=== PATIENT | male | born 1980 | race Caucasian/White ===

== ENCOUNTER 2020-04-18 11:14 | Emergency (ER) | payer MEDICAID, SELFPAY ==
[2020-04-18] VITALS (22 sets, daily range): BP systolic 138–189; BP diastolic 82–116; PULSE 85–123; RESP 11–23; TEMP 36.1–37; O2SAT 96–99
--- NOTE | 2020-04-18 11:15 | RT.EKG_ITS ---
APPROVED REPORT Exam: Resting ECG Patient Location: E HR:105 bpm ECG Measurements Heart Rate 105 AXIS KS 163 P 42 QRSd 90 QRS 136 QT 333 T 28 QTc 440 <Conclusion> Sinus tachycardia...rate> 99. No acute ST/T wave findings.
--- NOTE | 2020-04-18 11:35 | W.ED.GENAD ---
Discharge Plan Disposition Patient Disposition: HOME Condition: Stable Discharge Details Chief Complaint: GenMedical Clinical Impression: Chronic chest pain, Chronic leg pain Primary Care Provider: Unknown,Unknown ED Provider: Hien Hernandez Home Meds and New Rx's Prescriptions: Continued lisinopril 20 mg Tablet 20 mg PO DAILY RF: 0 amlodipine 10 mg Tablet 10 mg PO DAILY RF: 0 Discharge Instructions Instructions: Chronic Pain (ED), Leg Pain (ED) Additional Instructions: Alternate tylenol and motrin as needed and directed for pain. Continue to take your lisinopril during the day and try taking your amlodipine at night. You will receive a call from care management regarding a follow-up appointment with a primary care doctor for continued management of your blood pressure and for recheck of your glucose. Return immediately to the emergency department if you develop any worsening or new concerning symptoms. Discharge Data Discharge Physician: Hien Hernandez Medical Decision Making 1130 -- 39-year-old male with a history of hypertension presents for bilateral leg pain, and pleuritic chest pain for the past few months, worse over the past few days. BP on arrival 169/93. He appears sweaty and anxious but nontoxic. He states he began to feel sweaty after nurse minnie blood and placed IV. He admits to feeling slightly anxious while being in the ER. States his main concern was possible DVT or PE. EKG notes a rate of 105, sinus with no acute ST ischemic changes. Consider DVT/PE. History and presentation may be more consistent with anxiety, muscle strain. Will place an IV, bolus IV fluids, screening labs, bilateral Doppler ultrasounds and CT chest and give a dose of Ativan and reassess. 1400 -- Labs and imaging reviewed. Glucose 281. AST 80. ALT 99. Patient states he has had elevated liver enzymes in the past. CT chest and lower extremity ultrasounds negative for acute findings. CT chest did note findings consistent with possible previous infection versus granulomatous disease. Patient denies any known history of TB in the past but states he has had previous lung infections or pneumonia. Patient declined a dose of Ativan here. BP 138/82. He denies any complaints of chest or leg pain at this time. Patient is requesting to go home. Patient placed on care management list to arrange for a follow-up appointment with a new primary care doctor in the area to establish care, continue to monitor his blood pressure and recheck his glucose and check A1C, and recheck of his liver enzymes. Patient had expressed concern about amlodipine or lisinopril causing fatigue. Advised that patient can consider taking his BP meds at night. He is advised to watch sugar and carb intake. Usual and customary return precautions given prior to discharge. Medical Records Medical records reviewed: Yes I reviewed the patient's medical records. Imaging Data Radiologic Study: Radiologist's impression: US EXTREMITY VENOUS BI CLINICAL HISTORY: b/l leg pain, r/o dvt. TECHNIQUE: Ultrasound performed using standard protocol. COMPARISON: No exams were available for comparison FINDINGS: Duplex venous ultrasound was performed according to the usual protocol. The deep veins are freely compressible throughout and there is normal flow augmentation with manual calf compression. 2D and Doppler evaluation are unremarkable. IMPRESSION: No evidence of deep venous thrombosis of the lower extremities. CT CHEST PE CTA CLINICAL HISTORY: pleuritic chest pain, r/o PE TECHNIQUE: COMPARISON: No exams were available for comparison FINDINGS: CT angiography of the chest was performed with intravenous infusion of 100 cc of Omnipaque 350. Images obtained through the upper abdomen show unremarkable appearance of visualized portions of liver spleen pancreas and kidneys. Right adrenal unremarkable. Left adrenal contains a 2 cm low-attenuation lesion consistent with adrenal adenoma. 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 There is no evidence of pulmonary embolic disease. Thoracic aorta and major branches are unremarkable with no dissection or aneurysm. No mediastinal or hilar adenopathy. Lungs are clear. No pleural effusion or pneumothorax. IMPRESSION: No evidence of pulmonary embolic disease. Lab Data Lab results reviewed: Yes I reviewed the patient's lab results. Labs: Laboratory Tests Range/Units 04/18/20 04/18/20 04/18/20 11:35 11:35 11:35 WBC (4.4-10.8) 10^3/uL 7.49 RBC (4.36-5.78) 10^6/uL 5.66 Hgb (13.5-17.5) g/dL 16.7 Hct (40.0-50.0) % 49.3 MCV (80-95) fL 87.1 MCH (27.0-33.0) pg 29.5 MCHC (32.0-36.0) % 33.9 RDW (11.8-14.1) % 12.7 Plt Count (130-400) 10^3/uL 259 MPV (8.0-11.0) fL 10.6 Immature Gran % 0.5 Neutrophils % 56.4 Lymphocytes % 33.2 Monocytes % 8.1 Eosinophils % 1.5 Basophils % 0.3 Absolute Neutrophils (1.2-6.7) 10^3/uL 4.22 Absolute Lymphocytes (1.2-3.4) 10^3/uL 2.49 Absolute Monocytes (0.1-0.8) 10^3/uL 0.61 Absolute Eosinophils (0.0-0.7) 10^3/uL 0.11 Absolute Basophils (0.0-0.2) 10^3/uL 0.02 PT (9.3-11.0) sec 10.2 INR (0.9-1.1) 1.0 APTT (21.0-31.4) sec 23.7 Sodium (136-145) mmol/L 136 Potassium (3.5-5.1) mmol/L 3.8 Chloride (98-107) mmol/L 99 Carbon Dioxide (21.0-32.0) mmol/L 27.6 Anion Gap (3-11) mmol/L 9.4 BUN (7-18) mg/dL 13 Creatinine (0.70-1.30) mg/dL 0.96 Estimated GFR/1.73 m2 (mL/min/1.73m2) >= 60.00 Glucose (74-106) mg/dL 281 H Calcium (8.5-10.1) mg/dL 8.7 Magnesium (1.8-2.4) mg/dL 2.2 Total Bilirubin (0.2-1.0) mg/dL 0.4 AST (15-37) U/L 80 H ALT (16-63) U/L 99 H Alkaline Phosphatase (46-116) U/L 68 Troponin I (<0.06) ng/mL < 0.05 Total Protein (6.4-8.2) g/dL 7.5 Albumin (3.4-5.0) g/dL 4.0 ECG Data Attestation: I personally reviewed and interpreted this ECG (s) as follows: Interpretation: Rate of 105, sinus, no acute ST elevation or depression. OR 163. QRS 90. QTc 440. HPI General Mode of arrival: ambulatory. Date/Time Provider Initiated Documentation: 04/18/20 11:16. Limitations to Documentation: no limitations. Information obtained by: patient. HPI Narrative: Pt is a 39yoM who presents to the ED w/ a c/o intermittent pleuritic chest pain and bilateral leg pain over the last few months, worse over the past 2 days. Patient states he has been on lisinopril for his high blood pressure for some time and started amlodipine for his high blood pressure a few months ago. Patient states he feels that after he takes amlodipine, he has pain with deep breath and fatigue. He also states he occasionally exercises and has been attributing intermittent scattered leg pain to both legs over the last few months, but states this was more noticeable last night. He states he feels pain within his proximal thighs alternating from left to right. He admits to occasional calf pain but none at present. He states he moved from [place] to [place] awhile ago and then moved from [place] to [place] a few months ago. He denies any recent travel, recent surgery or known sick contacts. He denies any fever, cough, shortness of breath, vomiting, diarrhea, dizziness, abdominal pain or urinary symptoms. Related Data Home Medications Medication Instructions Recorded Confirmed amlodipine 10 mg PO DAILY 04/18/20 04/18/20 lisinopril 20 mg PO DAILY 04/18/20 04/18/20 Allergies Allergy/AdvReac Type Severity Reaction Status Date / Time skin prep AdvReac Mild rash/irrita Uncoded 04/18/20 11:37 tion MMR AdvReac Unknown Uncoded 04/18/20 11:37 General Stated Complaint: GenMedical MURRAY: 2 Review of Systems All systems reviewed & are unremarkable except as noted in HPI and below Constitutional Constitutional: Reports as per HPI, Denies chills and Denies fever(s) Eyes Eyes: Denies blurry vision ENT Ears, Nose, Mouth, and Throat: Denies dizziness, Denies sore throat and Denies throat swelling Cardiovascular Cardiovascular: Reports chest pain and Reports dyspnea Respiratory Respiratory: Denies cough and Reports dyspnea Gastrointestinal Gastrointestinal: Denies abdominal pain, Denies diarrhea and Denies vomiting Genitourinary Genitourinary: Denies hematuria and Denies dysuria Musculoskeletal Musculoskeletal: Denies back pain, Denies numbness and Reports other (b/l leg pain) Integumentary/Breasts Skin/Breast: Denies lesions and Denies rash Neurologic Neurologic: Denies dizziness, Denies localized weakness and Denies numbness Allergic/Immunologic Allergic/Immunologic: Denies throat swelling [facility] Medical History (Updated 04/18/20 @ 14:48 by Hien Hernandez DO) HTN (hypertension) (Chronic) Surgical History (Updated 04/18/20 @ 12:14 by Hien Hernandez DO) No significant past surgical history (Acute) Social History Smoking/Tobacco Use Status: Never Alcohol Intake: current Alcohol Intake frequency: a few times a month Substance use type: does not use Do you feel safe at home: Yes Do you feel safe in your relationship?: Yes Exam Const General: cooperative and anxious Orientation: alert, awake and oriented x3 HENMT Head: normal to inspection Face and sinus: normal facial exam Eyes General: appearance normal, both eyes and all related structures Pupils: PERRL EOM: EOM intact bilaterally Neck Neck: normal visual inspection and No submandibular swelling Lymphatic: no lymphadenopathy noted Chest Chest: normal inspection of the chest and no tenderness Resp Effort & Inspection: normal respiratory effort and able to speak in complete sentences Auscultation: clear to auscultation bilaterally Cardio Rate: regular rate Rhythm: regular rhythm GI Inspection: normal to inspection Palpation: soft, not firm, not rigid and nontender Auscultation: normal bowel sounds Male General Exam: Yes normal external exam Back/Spine/Pelvis Thoracic/Lumbar Spine: thoracic and lumbar spine normal to inspection Pelvis: no pain with anterior-posterior compression Skin General skin exam: no rashes or lesions noted Neuro General: patient alert, patient awake and patient oriented x3 Cognition: normal cognition Speech: speech normal Motor: muscle tone normal throughout Sensory Exam: no sensory deficits noted Extrem General: normal to inspection, full ROM, capillary refill normal, no calf tenderness bilaterally and no edema Psych Appearance: grossly normal Mental Status: mental status grossly normal Speech and Movement: speech and movement normal Affect: normal affect Course Vital Signs Vital signs: Vital Signs Temperature 97.0 F L 04/18/20 11:21 Pulse 101 H 04/18/20 11:21 Respiratory Rate 18 04/18/20 11:21 Blood Pressure 169/93 H 04/18/20 11:21 Pulse Oximetry 99 04/18/20 11:21 Temperature 97.0 F L 04/18/20 11:21 Temperature Source Skin 04/18/20 11:21 Pulse 101 H 04/18/20 11:21 Respiratory Rate 12 04/18/20 11:27 Respiratory Effort 04/18/20 11:27 Respiratory Depth Shallow 04/18/20 11:27 Respiratory Pattern Normal 04/18/20 11:27 Blood Pressure 169/93 H 04/18/20 11:21 Pulse Oximetry 99 04/18/20 11:21 Oxygen Delivery Method Room Air 04/18/20 11:21 Oxygen Flow Rate 0 04/18/20 11:21 Pain Level 2 04/18/20 11:21
--- NOTE | 2020-04-18 12:00 | DI.CT_ITS ---
EXAM: CT CHEST PE CTA CLINICAL HISTORY: pleuritic chest pain, r/o PE TECHNIQUE: COMPARISON: No exams were available for comparison FINDINGS: CT angiography of the chest was performed with intravenous infusion of 100 cc of Omnipaque 350. Imag es obtained through the upper abdomen show unremarkable appearance of visualized portions of liver sp jeniffer pancreas and kidneys. Right adrenal unremarkable. Left adrenal contains a 2 cm low-attenuation lesion consistent with adrenal adenoma. 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 There is no evidence of pulmonary embolic dis ease. Thoracic aorta and major branches are unremarkable with no dissection or aneurysm. No mediast inal or hilar adenopathy. Lungs are clear. No pleural effusion or pneumothorax. IMPRESSION: No evidence of pulmonary embolic disease.
--- NOTE | 2020-04-18 12:00 | DI.US_ITS ---
EXAM: US EXTREMITY VENOUS BI CLINICAL HISTORY: b/l leg pain, r/o dvt. TECHNIQUE: Ultrasound performed using standard protocol. COMPARISON: No exams were available for comparison FINDINGS: Duplex venous ultrasound was performed according to the usual protocol. The deep veins are freely com pressible throughout and there is normal flow augmentation with manual calf compression. 2D and Doppl er evaluation are unremarkable. IMPRESSION: No evidence of deep venous thrombosis of the lower extremities DATA REPOSITORY:
[2020-04-18 12:48] LABS: Abs Immature Grans 0.04 10^3/uL (0.0-0.06); Absolute Basophil Count 0.02 10^3/uL (0.0-0.2); Absolute Eosinophil Count 0.11 10^3/uL (0.0-0.7); Absolute Lymphocyte Count 2.49 10^3/uL (1.2-3.4); Absolute Monocyte Count 0.61 10^3/uL (0.1-0.8); Absolute Neutrophil Count 4.22 10^3/uL (1.2-6.7); Basophils % 0.3; Eosinophils % 1.5; HCT 49.3 % (40.0-50.0); HGB 16.7 g/dL (13.5-17.5); Immature Grans % 0.5; Lymphocytes % 33.2; MCH 29.5 pg (27.0-33.0); MCHC 33.9 % (32.0-36.0); MCV 87.1 fL (80-95); MPV 10.6 fL (8.0-11.0); Monocytes % 8.1; Neutrophils % 56.4; Platelet Count 259 10^3/uL (130-400); RBC 5.66 10^6/uL (4.36-5.78); RDW 12.7 % (11.8-14.1); RDW-SD 40.4 fL; WBC 7.49 10^3/uL (4.4-10.8)
[2020-04-18] MEDS: Omnipaque 350 MG/ML 100 ML BTL IJ (13:04)
[2020-04-18] MEDS: Normal Saline - Diluent 50 ML VIAL IV (13:04)
[2020-04-18] MEDS: Normal Saline Flush 10 ML SYR IVP (13:05)
[2020-04-18 13:06] LABS: ALT 99 U/L (16-63); Alkaline Phosphatase 68 U/L (46-116); Anion Gap 9.4 mmol/L (3-11); BUN 13 mg/dL (7-18); Bilirubin, Total 0.4 mg/dL (0.2-1.0); CO2 27.6 mmol/L (21.0-32.0); CREATININE 0.96 mg/dL (0.70-1.30); Calcium 8.7 mg/dL (8.5-10.1); Chloride 99 mmol/L (98-107); Glucose 281 mg/dL (74-106); Magnesium 2.2 mg/dL (1.8-2.4); Potassium 3.8 mmol/L (3.5-5.1); Sodium 136 mmol/L (136-145); Total Protein 7.5 g/dL (6.4-8.2)
[2020-04-18 13:10] LABS: Troponin I < 0.05 ng/mL (<0.06)
[2020-04-18] MEDS: Normal Saline 1,000 ML 1000 ML IV (13:11)
[2020-04-18] MEDS: LORazepam 2 MG/ML VIAL 0.5 MG IVP (13:11)
[2020-04-18 13:12] LABS: PTT Activated 23.7 sec (21.0-31.4); Prothrombin Time 10.2 sec (9.3-11.0)
[2020-04-18 13:22] LABS: AST 80 U/L (15-37)
--- NOTE | 2020-04-18 15:01 | NUR.NOTE ---
Nursing Note: Referral for local PCP given to Care Management. Bridget Massey
--- NOTE | 2020-04-19 10:25 | CMPROGNOTE_ITS ---
- If Service Date Differs Date of service: 04/19/20 Time of Service: 10:25 Care Management Progress Note At the request of ED provider, OPAL coordinates a referral to Ginny Hardin, on-call doc, of [facility] to assist Darin in establishing care with a local PCP.
== END 2020-04-18 14:59 | disposition home or self-care (01) ==
PROVIDERS: Emergency Provider Physician Assistant
DX: R07.81 Pleurodynia (principal); M79.604 Pain in right leg; M79.605 Pain in left leg; G89.29 Other chronic pain; F41.9 Anxiety disorder, unspecified; I10 Essential (primary) hypertension
CPT/HCPCS: 36415; 71275; 80053; 93005; 96361; 96374; 99285; 83735; 84484; 85025; 85610; 85730; 93010; 93970; J2060; J3490

== ENCOUNTER 2020-05-10 03:02 | Outpatient (CLI) | payer MEDICAID, SELFPAY ==
[2020-05-10 11:41] LABS: Abs Immature Grans 0.03 10^3/uL (0.0-0.06); Absolute Basophil Count 0.02 10^3/uL (0.0-0.2); Absolute Eosinophil Count 0.01 10^3/uL (0.0-0.7); Absolute Lymphocyte Count 2.45 10^3/uL (1.2-3.4); Absolute Monocyte Count 0.61 10^3/uL (0.1-0.8); Absolute Neutrophil Count 7.38 10^3/uL (1.2-6.7); Basophils % 0.2; Eosinophils % 0.1; HCT 51.6 % (40.0-50.0); HGB 17.7 g/dL (13.5-17.5); Immature Grans % 0.3; Lymphocytes % 23.3; MCH 29.5 pg (27.0-33.0); MCHC 34.3 % (32.0-36.0); MCV 86.1 fL (80-95); Monocytes % 5.8; Neutrophils % 70.3; Nucleated RBC 0 %; Platelet Count 274 10^3/uL (130-400); RBC 5.99 10^6/uL (4.36-5.78); RDW 12.5 % (11.8-14.1); RDW-SD 39.2 fL
[2020-05-10 12:42] LABS: ALT 77 U/L (16-63); AST 27 U/L (15-37); Albumin 4.6 g/dL (3.4-5.0); Alkaline Phosphatase 74 U/L (46-116); Bilirubin, Total 0.5 mg/dL (0.2-1.0); Calculated LDL 146 mg/dL (<100); Cholesterol 227 mg/dL (<200); Ferritin 543 ng/mL (26-388); HDL Cholesterol 34 mg/dL (40-60); Total Protein 8.1 g/dL (6.4-8.2); Triglyceride 239 mg/dL (<150); Vitamin B12 1251 pg/mL (193-986)
[2020-05-10 12:44] LABS: Folate > 20.0 ng/mL (8.6-20.0)
[2020-05-10 13:04] LABS: Iron 103 ug/dL (65-175); Total Iron Binding Capacity 348 ug/dL (250-450); Transferrin Sat 30 % (20-55)
[2020-05-10 16:50] LABS: T3,Free 3.9 pg/mL (2.8-5.3)
[2020-05-11 09:07] LABS: DHEA Sulfate 200 ug/dL (140-484)
[2020-05-11 13:30] LABS: Lipoprotein (a) <6 mg/dL (<=30)
[2020-05-11 15:12] LABS: Homocysteine 9.8 umol/L (5.0-13.9)
[2020-05-12 04:49] LABS: Vitamin D 25 Total 18.1 ng/ml (30-100)
[2020-05-12 16:29] LABS: Testosterone, Free 4.34 ng/dL (4.65-18.1); Testosterone, Total 167 ng/dL (240-950)
[2020-05-16 17:01] LABS: MTHFR A1298C Mutation Analysis Negative (Negative); Methylenetetrahydrofol Reduc M Heterozygous (Negative)
== END 2020-05-10 03:22 ==
PROVIDERS: Visit Provider Naturopath
DX: F41.9 Anxiety disorder, unspecified (principal); I10 Essential (primary) hypertension; R73.9 Hyperglycemia, unspecified; R74.8 Abnormal levels of other serum enzymes; R53.83 Other fatigue; Z13.220 Encounter for screening for lipoid disorders
CPT/HCPCS: 36415; 80061; 80076; 81291; 82306; 82533; 82627; 83090; 83695; 84402; 84403; 82607; 82728; 82746; 83036; 83540; 83550; 83735; 84481; 85025

== ENCOUNTER 2020-07-05 00:43 | Outpatient (CLI) | payer MEDICAID, SELFPAY ==
--- NOTE | 2020-07-05 | DI.US_ITS ---
EXAM: US ABDOMEN CLINICAL HISTORY: HIGH SERUM FERRITIN,R77.8,? HETEROGENICITY OF LIVER TECHNIQUE: Ultrasound abdomen performed using standard protocol. COMPARISON: CT CT CHEST PE CTA from 04/18/2020 FINDINGS: LIVER: Diffusely increased echogenicity and decreased through transmission, consistent with moderate fatty infiltration. The overall liver echotexture is relatively homogeneous.. No focal liver lesion s are seen.. GALLBLADDER: No evidence of cholelithiasis. No evidence of wall thickening. No pericholecystic fluid identified. OQUENDO'S SIGN: Negative. BILIARY SYSTEM: No intrahepatic or extrahepatic biliary ductal dilation. KIDNEYS: Kidneys are symmetric in size. No evidence of renal calculi. No evidence of hydronephrosis. No renal mass or cyst identified. PANCREAS: Normal where visualized. SPLEEN: Within normal limits in size, measuring 12 cm in greatest dimension.. ABDOMINAL AORTA AND IVC: Visualized portions normal caliber. ASCITES: None seen. IMPRESSION: Moderate hepatic steatosis. No focal mass. DATA REPOSITORY:
== END 2020-07-05 01:03 ==
PROVIDERS: Visit Provider Naturopath
DX: K76.0 Fatty (change of) liver, not elsewhere classified (principal)
CPT/HCPCS: 76700

== ENCOUNTER 2020-11-29 11:14 | Outpatient (REF) | payer MEDICAID, SELFPAY ==
[2020-11-29 18:00] LABS: HCT 49.7 % (40.0-50.0); HGB 16.6 g/dL (13.5-17.5); MCHC 33.4 % (32.0-36.0); MCV 86.7 fL (80-95); MPV 10.6 fL (8.0-11.0); Platelet Count 227 10^3/uL (130-400); RBC 5.73 10^6/uL (4.36-5.78); RDW 12.6 % (11.8-14.1); RDW-SD 39.8 fL; WBC 6.36 10^3/uL (4.4-10.8)
[2020-11-29 18:15] LABS: Hemoglobin A1C 7.3 % (<5.7)
[2020-11-29 18:25] LABS: ALT 91 U/L (16-63); AST 44 U/L (15-37); Albumin 4.1 g/dL (3.4-5.0); Alkaline Phosphatase 83 U/L (46-116); Anion Gap 13.5 mmol/L (3-11); BUN 13 mg/dL (7-18); Bilirubin, Total 0.5 mg/dL (0.2-1.0); CO2 26.5 mmol/L (21.0-32.0); CREATININE 1.1 mg/dL (0.70-1.30); Calculated LDL 100 mg/dL (<100); Chloride 100 mmol/L (98-107); Cholesterol 187 mg/dL (<200); Glucose 151 mg/dL (74-106); HDL Cholesterol 28 mg/dL (40-60); Potassium 3.9 mmol/L (3.5-5.1); Sodium 140 mmol/L (136-145); Total Protein 7.4 g/dL (6.4-8.2); Triglyceride 296 mg/dL (<150)
== END 2020-11-29 11:15 | disposition home or self-care (01) ==
LOC: NCHCN 11:14
PROVIDERS: Visit Provider Physician Assistant
DX: R73.03 Prediabetes (principal); E78.5 Hyperlipidemia, unspecified; I10 Essential (primary) hypertension
CPT/HCPCS: 80053; 80061; 82533; 85027; 83036

== ENCOUNTER → 2021-12-11 01:32 | Outpatient (CLI) | payer MEDICAID, SELFPAY | PROVIDERS: Visit Provider Physician Assistant ==

== ENCOUNTER 2021-12-30 16:09 | Outpatient (REF) | payer MEDICAID, SELFPAY ==
[2022-01-03 19:28] LABS: Metanephrines, U 250 mcg/24 h; Normetanephrine, U 1056 mcg/24 h; Total Metanephrines, U 1306 mcg/24 h; Urine Volume 4800 mL
== END 2021-12-30 16:10 | disposition home or self-care (01) ==
LOC: NCHCN 16:09
PROVIDERS: Visit Provider Physician Assistant
DX: R00.0 Tachycardia, unspecified (principal)
CPT/HCPCS: 81050; 83835

== ENCOUNTER 2022-01-01 16:04 | Outpatient (REF) | payer MEDICAID, SELFPAY ==
[2022-01-01 19:54] LABS: Iron 159 ug/dL (65-175); Total Iron Binding Capacity 318 ug/dL (250-450); Transferrin Sat 50 % (20-55)
[2022-01-01 20:24] LABS: Ferritin 402 ng/mL (26-388)
[2022-01-01 20:40] LABS: FREE T4 0.85 ng/dL (0.76-1.46)
[2022-01-02 18:37] LABS: T3,Free 4.7 pg/mL (2.8-5.3)
== END 2022-01-01 16:05 | disposition home or self-care (01) ==
LOC: NCHCN 16:04
PROVIDERS: Visit Provider Physician Assistant
DX: E04.1 Nontoxic single thyroid nodule (principal)
CPT/HCPCS: 82728; 83540; 83550; 84439; 84443; 84481

== ENCOUNTER 2022-01-15 01:02 | Outpatient (CLI) | payer MEDICAID, SELFPAY ==
--- NOTE | 2022-01-15 | DI.CT_ITS ---
Exam(s) CT CHEST WO EXAM: CT CHEST WO CLINICAL HISTORY: LUNG NODULES R91.8, FU GRANULOMATOUS DISEASE 2019 CT. TECHNIQUE: Imaging protocol: Axial computed tomography images were obtained and coronal and sagittal reformatted images were created and reviewed. COMPARISON: CT CT CHEST PE CTA from 04/18/2020 FINDINGS: Tracheobronchial tree: Patent where visualized. Mediastinum and Cherie: Small calcified mediastinal and hilar lymph nodes. No dominant adenopathy or f luid collection. Pulmonary parenchyma: Scattered calcified pulmonary nodules consistent with healed granulomas. No co nsolidation or dominant measurable mass. Pleura: No effusion or pneumothorax. Heart: The heart is not dilated. No coronary artery calcifications are seen. Aorta: Thoracic aorta non-dilated. Upper abdomen: Enlarged liver with severe fatty infiltration. Lymph nodes: Within normal limits. Bones:Normal. Soft tissues: Mild bilateral gynecomastia. IMPRESSION: Scattered pulmonary calcifications and small calcified lymph nodes consistent with old healed granulo matous disease. No noncalcified nodules or infiltrates. RADIATION DOSE DELIVERED: 687.28mGy.cm Total DLP 687.28mGy.cm Total DLP DATA REPOSITORY: All CT scans at this facility are submitted to the National Radiology Data Registry (NRDR) Dose Index Registry (DIR) with the [employer] [place] [employer] (ACR). RADIATION OPTIMIZATION: All CT scans at this facility use at least one of these dose optimization te chniques: automated exposure control; mA and/or kV adjustment per patient size (includes targeted exa ms where dose is matched to clinical indication); or iterative reconstruction.
== END 2022-01-15 01:22 ==
PROVIDERS: PCP Physician Assistant; Visit Provider Physician Assistant
DX: J98.4 Other disorders of lung (principal); R91.8 Other nonspecific abnormal finding of lung field; D71 Functional disorders of polymorphonuclear neutrophils; I89.8 Other specified noninfective disorders of lymphatic vessels and lymph nodes
CPT/HCPCS: 71250

== ENCOUNTER → 2022-02-06 02:07 | Outpatient (CLI) | payer MEDICAID, SELFPAY ==
--- NOTE | 2022-02-06 13:00 | DI.US_ITS ---
Exam(s) US THYROID EXAM: US THYROID CLINICAL HISTORY: RT THYROID NODULE, E04.1 TECHNIQUE: Ultrasound performed using standard protocol. COMPARISON: US US ABDOMEN from 07/05/2020 FINDINGS: Thyroid ultrasound was performed according to the usual protocol. Right thyroid lobe measures 49 x 2 0 x 22 millimeters. Left thyroid lobe measures 53 x 22 x 18 millimeters. The isthmus is about 6 mil limeters in thickness. There are scattered tiny thyroid nodules. Largest nodule is a right thyroid lobe 16 millimeter in di ameter solid isoechoic nodule with smooth margins, TR 3 by TI-RADS classification. This may be follo wed with repeat ultrasound in 12 months. There is 10 millimeter TR 4 nodule also identified in the l eft thyroid lobe, this may be followed in 12 months as well. No other suspicious nodule seen. IMPRESSION: Multiple thyroid nodules with low index of suspicion, by TI-RADS criteria the 2 largest nodules shoul d be followed with repeat ultrasound in 12 months as described above. DATA REPOSITORY:
== END ==
PROVIDERS: PCP Physician Assistant; Visit Provider Physician Assistant
DX: E04.2 Nontoxic multinodular goiter (principal)
CPT/HCPCS: 76536

== ENCOUNTER 2022-10-18 16:13 | Outpatient (REF) | payer MEDICAID, SELFPAY | END 2022-10-18 16:14 | disposition home or self-care (01) | LOC: NCHCN 16:13 | PROVIDERS: PCP Physician Assistant; Visit Provider Physician Assistant | DX: I10 Essential (primary) hypertension (principal); E11.9 Type 2 diabetes mellitus without complications; F41.9 Anxiety disorder, unspecified | CPT/HCPCS: 82043; 82570 ==

== ENCOUNTER 2023-03-04 04:20 | Outpatient (CLI) | payer MEDICAID, SELFPAY ==
[2023-03-14 09:02] LABS: Testosterone, Total 462 ng/dL (240-950)
== END 2023-03-04 04:21 | disposition home or self-care (01) ==
PROVIDERS: PCP Physician Assistant; Visit Provider Physician Assistant
DX: R53.83 Other fatigue (principal)
CPT/HCPCS: 36415; 84403

== ENCOUNTER → 2023-10-30 01:36 | Outpatient (CLI) | payer MEDICAID, SELFPAY ==
--- OUTSIDE RECORDS SUMMARY | 2023-10-30 01:38 | XMS_ITS | Continuity of Care Document ---
Author Name Unknown Organization [facility] Address [address] [place] [address] Care Team Providers Care Pathology Laboratory Aides Teacher Name Role Phone [facility] Primary Care [facility]ician Encounter [facility] Date(s): 09/30/23 - 09/30/23 [facility] [address] [place] [address] Discharge Disposition: Home Allergies, Adverse Reactions, Alerts No Known Allergies Assessment and Plan Future Appointments Medications amLODIPine 2.5 mg oral tablet 2.5 mg = 1 tab, Oral, Daily Start Date: 04/09/22 Status: Ordered APAP APAP, dispense auto CPAP 6-16 cm with heated humidity, compliance capabilities, mask of choice and supplies as needed. Please do an in office set up with proper mask fit. [facility], Supply, See instructions, # 1 EA, 0 Refill(s) Start Date: 04/12/22 Status: Ordered bisoprolol 5 mg oral tablet 5 mg = 1 tab, Oral, Daily Start Date: 04/09/22 Status: Ordered doxazosin 2 mg oral tablet 2 mg = 1 tab, Oral, Daily Start Date: 04/09/22 Status: Ordered lisinopril 20 mg oral tablet 20 mg = 1 tab, Oral, Daily Start Date: 04/09/22 Status: Ordered metFORMIN 500 mg oral tablet 500 mg = 1 tab, Oral, Daily Start Date: 04/09/22 Status: Ordered methylphenidate 10 mg oral tablet 10 mg = 1 tab, Oral, As Directed, take every day in the afternoon as needed, 0 Refill(s) Start Date: 04/09/22 Status: Ordered Vyvanse 30 mg oral capsule 30 mg 1 cap, Oral, every morning, 0 Refill(s) Start Date: 04/09/22 Status: Ordered Problem List Condition Confirmation Course Effective Dates Status H ealth Status Informant Anxiety Confirmed Active ADHD Confirmed Active Autism Confirmed Active Daytime somnolence Confirmed Active Essential hypertension Confirmed Active Heart murmur Confirmed Active Hyperlipidemia Confirmed Active Multiple nodules of lung Confirmed Active Obstructive sleep apnea, adult 1 Confirmed Active Sleep disorder Confirmed Active Diabetes mellitus, type 2 Confirmed Active 1CPAP 6-16 cm TMS Social History Social History Type Response Tobacco Never tobacco user T obacco Use:. Sex Male Patient Care team information Care Team Personnel Name: [facility] Position: No Access Member Role: Primary Care Physician Address: Address: [facility] [address] [address] [place] [address]- Name: Crystal Griffiths SCREENING SPECIALIST Position: Physician Member Role: Nurse Practitioner Address: Address: [address] [place] [address] [address] [place], [place] [id number] Care Team Related Persons Name: USHA DUDLEY
--- NOTE | 2023-10-30 08:00 | DI.US_ITS ---
Exam(s) US THYROID EXAM: US THYROID CLINICAL HISTORY: F/U thyroid nodule in 01/2022,E04.1. TECHNIQUE: Ultrasound thyroid performed using standard protocol. COMPARISON: US US THYROID from 02/06/2022 FINDINGS: ISTHMUS: 5.5 mm RIGHT LOBE: Size: 5.6 x 2.1 x 2.4 cm Echogenicity: Normal. Vascularity: Normal. Nodules: No suspicious nodules. None a previously measured 1.6 centimeter nodule is not seen on the current exam. LEFT LOBE: Size: 4.2 x 2.2 x 1.8 cm Echogenicity: Normal. Vascularity: Normal. Nodules: Nodule mid to lower pole measuring 2.1 x 2.3 x 1.5 cm, increasing from the prior exam where it measured 1.6 x 1.0 x 1.3 cm. It is taller than wide, contains a macrocalcification isoechoic, wit h indistinct margins. Tear at 5. FNA recommended.. OTHER FINDINGS: None. IMPRESSION: Interval increase in size of nodule lower pole of left lobe of the thyroid. TR 5. FNA recommended. DATA REPOSITORY:
== END ==
PROVIDERS: PCP Physician Assistant; Visit Provider Registered Nurse Maternal Newborn
DX: E04.1 Nontoxic single thyroid nodule (principal)
CPT/HCPCS: 76536

== ENCOUNTER 2023-11-04 18:09 | Outpatient (REF) | payer MEDICAID, SELFPAY ==
[2023-11-04 15:32] LABS: HCT 50.6 % (40.0-50.0); HGB 17.1 g/dL (13.5-17.5); MCH 28.7 pg (27.0-33.0); MCHC 33.8 % (32.0-36.0); MCV 85 fL (80-95); MPV 10.3 fL (8.0-11.0); Platelet Count 264 10^3/uL (130-400); RBC 5.96 10^6/uL (4.36-5.78); RDW 12.7 % (11.8-14.1); RDW-SD 38.6 fL; WBC 6.36 10^3/uL (4.4-10.8)
[2023-11-04 16:17] LABS: Hemoglobin A1C 7.1 % (<5.7)
[2023-11-04 16:28] LABS: ALT 48 U/L (16-63); AST 25 U/L (15-37); Albumin 4.4 g/dL (3.4-5.0); Alkaline Phosphatase 76 U/L (46-116); Anion Gap 14.4 mmol/L (3-11); BUN 14 mg/dL (7-18); Bilirubin, Total 0.4 mg/dL (0.2-1.0); CO2 24.6 mmol/L (21.0-32.0); CREATININE 1.1 mg/dL (0.70-1.30); Calcium 9.3 mg/dL (8.5-10.1); Calculated LDL 112 mg/dL (<100); Chloride 99 mmol/L (98-107); Cholesterol 191 mg/dL (<200); Estimated GFR 87.03 (mL/min/1.73m2); Glucose 153 mg/dL (74-106); HDL Cholesterol 37 mg/dL (40-60); Potassium 3.7 mmol/L (3.5-5.1); Sodium 138 mmol/L (136-145); Total Protein 7.8 g/dL (6.4-8.2); Triglyceride 212 mg/dL (<150)
== END 2023-11-04 18:10 | disposition home or self-care (01) ==
LOC: NCHCN 18:09
PROVIDERS: PCP Physician Assistant; Referring Provider Physician Assistant; Visit Provider Physician Assistant
DX: E11.9 Type 2 diabetes mellitus without complications (principal); I10 Essential (primary) hypertension
CPT/HCPCS: 80053; 80061; 85027; 83036

== ENCOUNTER 2023-11-21 15:48 | Outpatient (REF) | payer MEDICAID, SELFPAY ==
[2023-11-21 19:17] LABS: Microalb ug/mg Crea 13.1 ug/mg Cr
== END 2023-11-21 15:49 | disposition home or self-care (01) ==
LOC: NCHCN 15:48
PROVIDERS: PCP Physician Assistant; Visit Provider Physician Assistant
DX: E11.9 Type 2 diabetes mellitus without complications (principal)
CPT/HCPCS: 82043; 82570

== ENCOUNTER 2024-01-02 15:28 | Outpatient (REF) | payer MEDICAID, SELFPAY | END 2024-01-02 15:29 | disposition home or self-care (01) | LOC: NCHCN 15:28 | PROVIDERS: PCP Physician Assistant; Visit Provider Physician Assistant | DX: E04.1 Nontoxic single thyroid nodule (principal) | CPT/HCPCS: 84443 ==

== ENCOUNTER 2025-01-18 13:21 | Outpatient (CLI) | payer MEDICAID, SELFPAY ==
[2025-01-18 13:52] LABS: Hemoglobin A1C 6.4 % (<5.7)
[2025-01-18 13:55] LABS: ALT 42 U/L (16-63); AST 28 U/L (15-37); Albumin 4.5 g/dL (3.4-5.0); Alkaline Phosphatase 79 U/L (46-116); Anion Gap 11.1 mmol/L (3-11); BUN 12 mg/dL (7-18); Bilirubin, Total 0.4 mg/dL (0.2-1.0); CO2 29.9 mmol/L (21.0-32.0); Calcium 9.2 mg/dL (8.5-10.1); Calculated LDL 147 mg/dL (<100); Chloride 99 mmol/L (98-107); Cholesterol 224 mg/dL (<200); Estimated GFR 96.37 (mL/min/1.73m2); Glucose 134 mg/dL (74-106); HDL Cholesterol 49 mg/dL (>or=40); Potassium 3.9 mmol/L (3.5-5.1); Sodium 140 mmol/L (136-145); Total Protein 8.4 g/dL (6.4-8.2); Triglyceride 141 mg/dL (<150)
== END 2025-01-18 13:22 | disposition home or self-care (01) ==
LOC: LBO 13:24
PROVIDERS: PCP Physician Assistant; Visit Provider Physician Assistant
DX: E11.9 Type 2 diabetes mellitus without complications (principal); E78.5 Hyperlipidemia, unspecified
CPT/HCPCS: 36415; 80053; 80061; 82043; 82570; 83036

== ENCOUNTER → 2025-07-20 00:45 | Outpatient (CLI) | payer MEDICAID, SELFPAY ==
--- NOTE | 2025-07-20 | DI.US_ITS ---
Exam(s) US THYROID EXAM: US THYROID CLINICAL HISTORY: NON TOXIC SINGLE THYROID, UNINODULAR GOITER, L SIDED E04.1. TECHNIQUE: Ultrasound thyroid performed using standard protocol. COMPARISON: US US THYROID from 10/30/2023 FINDINGS: ISTHMUS: 4 mm RIGHT LOBE: Size: 5.4 x 2.6 x 2.7 cm Echogenicity: Normal. Vascularity: Normal. Nodules: There is a stable small nodule in the upper pole of the right lobe of the thyroid gland. It remains a TI rads level 2 nodule. No follow-up or biopsy is recommended. LEFT LOBE: Size: 5.9 x 2.1 x 2.0 cm Echogenicity: Normal. Vascularity: Normal. Nodules: There is a stable nodule in the inferior left lobe. It remains a TI rads level 5 nodule. It is taller than wide and contains a macrocalcification. It has indistinct margins. Due to these findings, FNA is recommended. OTHER FINDINGS: None. IMPRESSION: Stable thyroid nodules. DATA REPOSITORY:
== END ==
PROVIDERS: PCP Physician Assistant; Visit Provider Physician Assistant
DX: E04.1 Nontoxic single thyroid nodule (principal)
CPT/HCPCS: 76536